=== PATIENT | female | born 1950 | race Caucasian/White ===

== ENCOUNTER 2019-09-26 11:06 | Emergency (ER) | payer MEDICARE, SELFPAY ==
--- NOTE | ~2019-09-26 | XR_ITS ---
EXAMINATION: XR foot LT min 3V DATE: 09/26/2019 11:41 INDICATION: Pain after fall TECHNIQUE: Dorsoplantar, lateral, and 2 oblique views of the left foot were obtained. COMPARISON: None. FINDINGS: The bones are osteopenic which limits the sensitivity for fracture however none is seen. Th ere is dorsal soft tissue swelling of the foot overlying the metatarsals. There is mild osteoarthriti s at multiple interphalangeal joints as well as at the first metatarsophalangeal joint. A plantar sunita caneal enthesophyte is noted. IMPRESSION: 1. Dorsal soft tissue swelling of the foot without underlying osseous abnormality, sensitivity limite d by osteopenia. Reviewed, dictated and finalized at location A. IMPRESSION: 1. Dorsal soft tissue swelling of the foot without underlying osseous abnormali ty, sensitivity limited by osteopenia.
[2019-09-26 11:15] VITALS: BP 151/51; PULSE 70; RESP 16; TEMP 36.6; O2SAT 100
--- NOTE | 2019-09-26 11:37 | ED.GENADULT ---
HPI - General Adult General Chief complaint: Extremity Injury, Lower Stated complaint: left foot injury Time Seen by Provider: 09/26/19 11:38 Source: patient and RN notes reviewed Mode of arrival: wheelchair Limitations: no limitations and clinical condition History of Present Illness HPI narrative: This is a 69 years old female presented office for evaluation of left foot injury last week. Foot get caught in between the chair and tripped over and landed on her knee. She complains of left knee and hip pain for couple days following the injury however it has gotten better except her left ankle and foot. She continues to have pain on her ankle and foot with swelling. She tried to prop it up along with Kareem bandage and ice it with no relief. Denies history of ankle or foot fracture in the past. Denies head injury or trauma. Related Data Home Medications Medication Instructions Recorded Confirmed amlodipine 10 mg tablet 10 mg PO DAILY 06/14/19 09/26/19 cholecalciferol (vitamin D3) 10 400 unit PO DAILY 06/14/19 09/26/19 mcg (400 unit) capsule hydrochlorothiazide 12.5 mg capsule 12.5 mg PO DAILY 06/14/19 09/26/19 lisinopril 40 mg tablet 40 mg PO DAILY 06/14/19 09/26/19 metoprolol succinate 50 mg 50 mg PO DAILY 06/14/19 09/26/19 tablet,extended release 24 hr timolol 0.25 % eye drops 1 drop EACH EYE Q12H 06/14/19 09/26/19 Allergies Allergy/AdvReac Type Severity Reaction Status Date / Time No Known Allergies Allergy Verified 09/26/19 11:26 Review of Systems Review of Systems: Narrative: CONSTITUTIONAL: Denies feeling ill ENT: Denies congestion CARDIOVASCULAR: Denies chest pain RESPIRATORY: Denies dyspnea GASTROINTESTINAL: Denies abdominal pain, nausea, vomiting, diarrhea. SKIN: Denies skin abrasion MUSCULOSKELETAL: Reports left ankle/pain NEUROLOGIC: Denies head injury [facility] Past Medical History Medical History (Updated 09/26/19 @ 11:57 by GISELE Salcedo) Aortic valve stenosis BMI greater than 30 Closed trimalleolar fracture of right ankle with routine healing Diabetic peripheral neuropathy Essential (primary) hypertension Hypovitaminosis D Post menopausal problems Pure hypercholesterolemia Seasonal allergies Uncontrolled type 1 diabetes mellitus with hyperglycemia Family History Family History Mother Family history of cataracts Family history of diabetes mellitus in first degree relative Diabetes mellitus Sibling Family history of diabetes mellitus in first degree relative Hypertension Family history of elevated blood lipids Cerebrovascular accident Diabetes mellitus Family history of cardiovascular disease Father Family history of heart disease in male family member before age 55 Family history of cardiovascular disease Family history of chronic obstructive pulmonary disease Other Family history of malignant neoplasm Social History Social History Smoking status: Never smoker Second hand tobacco smoke exposure: No Alcohol intake: never Comments At time of signature, I agree with nursing past medical, surgical, social and family history. There is no relevant family history pertinent to the presenting complaint. Exam Narrative: Exam Narrative: GENERAL: This is a well-nourished, well-developed patient, in no apparent distress. NEURO: awake, alert, and oriented to person, place and time. There were no obvious focal neurologic abnormalities. Steady gait EXTREMITIES: The left ankle is swollen and tender over the lateral aspect but the skin is intact and there is no ligamentous instability. There is no deformity. There is also tenderness and swelling over the dorsum of the foot. Range of motion limited secondary to pain. No deformity. The skin is intact; however there is ecchymosis over her 2-4 phalanges. Juliana Coma Scale Eye Opening: Spontaneous 4 Juliana Coma
== END 2019-09-26 12:06 | disposition home or self-care (01) ==
PROVIDERS: Emergency Provider Nurse Practitioner; PCP Family Medicine
DX: S99.922A Unspecified injury of left foot, initial encounter (principal); W18.09XA Striking against other object with subsequent fall, initial encounter; M19.072 Primary osteoarthritis, left ankle and foot; I10 Essential (primary) hypertension; E10.42 Type 1 diabetes mellitus with diabetic polyneuropathy; I35.0 Nonrheumatic aortic (valve) stenosis
CPT/HCPCS: 73630; 99213; G0463

== ENCOUNTER 2022-03-16 07:48 | Outpatient (CLI) | payer MEDICARE, SELFPAY ==
--- NOTE | ~2022-03-16 | DEXA_ITS ---
Bone Density Report Name: BRISEIDA DA SILVA Age: 71 Sex: Female Ethnicity: White Date of : 1950 Indication: postmenopausal; screening for osteoporosis; prior fracture; Referring Provider: MENA SALOMON Study: Bone densitometry was performed. Exam Date: March 16, 2022 Accession number: [id number] Bone Density: Region BMD T-score Z-score Classification AP Spine(L1-L4) 1.142 0.9 3.1 Normal Femoral Neck (Left) 0.805 -0.4 1.6 Normal Total Hip (Left) 0.944 0.0 1.7 Normal Femoral Neck (Right) 0.819 -0.3 1.7 Normal Total Hip (Right) 0.978 0.3 2.0 Normal Total Hip Mean 0.961 0.2 1.9 Normal World Health Organization criteria for BMD impression classify patients as: Normal (T-score at or above -1.0), Osteopenia (T-score between -1.0 and -2.5), or Osteoporosis (T-score at or below -2.5). 10-year Fracture Risk: FRAX not reported because: All T-scores for Spine Total, Hip Total, Femoral Neck at or above -1.0 Previous Exams: Region Exam Age BMD T-score BMD Change BMD Change Date g/cm2 vs Baseline vs Previous AP Spine (L1-L4) 03/16/2022 71 1.142 0.9 0.009 (0.8%) 0.009 (0.8%) 01/26/2018 67 1.133 0.8 Total Hip(Left) 03/16/2022 71 0.944 0.0 -0.005 (-0.5%) -0.005 (-0.5%) 01/26/2018 67 0.949 0.1 Total Hip(Right) 03/16/2022 71 0.978 0.3 0.019 (2.0%) 0.019 (2.0%) 01/26/2018 67 0.959 0.1 *Denotes significance at 95% confidence level, LSC for AP Spine = 0.022 g/cm2, LSC for Total Hip = 0.027 g/cm2 Clinical Information Provided by Patient: Has had a low trauma fracture Has used the following medications: Vitamin D Patient maximum height was 66 Menopause Age: 49 No regular weight bearing exercise Drinks caffeinated beverages Onset of menses at age 15 Number of children 2 Impression: The patient has normal bone mass. The patient has risk factors, including: previous fracture. No significant bone loss was observed. Discussion: BONE DENSITY IS ABOVE THE MINIMUM DESIRABLE LEVEL AT ALL SKELETAL SITES TESTED. This patient?s bone mineral density is above the minimum desirable level (T-score -1.0 or better) at all sites measured. The patient should follow a healthful lifestyle (good nutrition with adequate calcium and vitamin D, and appropriate weight-bearing exercise). Follow-Up: Consider repeating this study in 5 years or sooner if there is some new clinical indication. Reported by: [facility] on 03/18/
== END 2022-03-16 07:49 | disposition home or self-care (01) ==
PROVIDERS: PCP Family Medicine; Visit Provider Internal Medicine Endocrinology, Diabetes & Metabolism
DX: Z78.0 Asymptomatic menopausal state (principal)
CPT/HCPCS: 77080

== ENCOUNTER 2024-03-02 09:18 | Outpatient (CLI) | payer MEDICARE, SELFPAY ==
--- NOTE | ~2024-03-02 | US_ITS ---
EXAMINATION: US thyroid DATE: 03/02/2024 10:21 INDICATION: Nontoxic single thyroid nodule. TECHNIQUE: Multiple ultrasound images of the thyroid were obtained. COMPARISON: Thyroid ultrasound 05/02/2019 FINDINGS: The right thyroid lobe measures 3.8 x 2.2 x 1.9 cm. The left thyroid lobe measures 3.5 x 1.5 x 1.4 c m. In the right thyroid lobe, there is a 2.3 cm solid, hypoechoic, wider than tall nodule with lobul ated margin and punctate echogenic foci (TI-RADS TR5). In the left thyroid lobe, there is a 16 mm zachary id, hypoechoic, wider than tall nodule with ill-defined margin and punctate echogenic foci (TR5). The re are multiple subcentimeter nodules in the thyroid with similar ultrasound features. IMPRESSION: 1. Thyroid nodules, stable from 05/02/2019, likely benign. No follow-up is needed. Reviewed, dictated and finalized at location A. IMPRESSION: 1. Thyroid nodules, stable from 05/02/2019, likely benign. No follow-up is need ed.
== END 2024-03-02 09:19 | disposition home or self-care (01) ==
LOC: ANHIMG 09:30
PROVIDERS: PCP Nurse Practitioner; Visit Provider Internal Medicine Endocrinology, Diabetes & Metabolism
DX: E04.2 Nontoxic multinodular goiter (principal)
CPT/HCPCS: 76536

== ENCOUNTER → 2024-06-08 09:55 | Outpatient (CLI) | payer MEDICARE, SELFPAY ==
--- NOTE | ~2024-06-08 | XR_ITS ---
EXAMINATION: XR_[id number]_CR DATE: 06/08/2024 10:18 INDICATION: Neck pain shooting down the left arm. TECHNIQUE: 4 views of cervical spine were obtained. COMPARISON: None. FINDINGS: There is 5 degrees dextrocurvature of cervical spine. Vertebral body heights are normal. Th ere is mildly decreased disc height at C5-C6 and severely decreased disc height at C6-C7. There is mu ltilevel mild facet joint osteoarthritis. There is mild central canal stenosis at C6-C7. No preverteb ral soft tissue swelling. IMPRESSION: 1. Severe cervical spondylosis. Reviewed, dictated and finalized at location A. [employer] RESPONSE COORDINATOR
== END ==
LOC: EXPBETH 10:00
DX: M47.892 Other spondylosis, cervical region (principal)
CPT/HCPCS: 72040